=== PATIENT | male | born 1955 | race Hispanic/Latino ===

== ENCOUNTER 2024-07-12 01:15 | Emergency (ER) | payer MEDICARE, BC, SELFPAY ==
[2024-07-12] VITALS (7 sets, daily range): BP systolic 120–137; BP diastolic 80–90; BMI 33.9
--- NOTE | 2024-07-12 01:42 | ED.GENMED ---
History of Present Illness
<SHARA Pratt - Last Filed: 07/13/24 19:09>
General
Chief Complaint: Cold/Flu/URI Symptoms
Source: patient
Exam Limitations: none
Time Seen by Provider: 07/12/24 01:31
History of Present Illness
History of Present Illness:
This is a 69 year old male that comes in with c/o fever. States that he started on Sunday with shaking chills. States that they were so bad that he could hardly walk. States that thing have progressed and he has a fever with headache, nausea,
vomiting and diarrhea. States that he has upper abd pain. States that he recently had a CT of his abd as he had groin pain so he goes back to the cancer center and he was told that everything looked ok. Denies any chest pain, dizziness, urinary
burning.
Past History
<SHARA Pratt - Last Filed: 07/13/24 19:09>
Past History
ED Past Medical History: Cancer (Penile cancer) and Other (MRSA)
ED Past Surgical History: None, Orthopedic (carpal tunnel, Bilateral knees clean out due to Infection) and Other (Hernia, )
Social History
Tobacco: Non-smoker
Alcohol: Former
Drug: None
Personal:
Living: with family
Review of Systems
<SHARA Pratt - Last Filed: 07/13/24 19:09>
Review of Systems
All Other Systems: ROS reviewed and negative except as documented in HPI and ROS
Constitutional: Reports fever and chills
EENT: Reports no symptoms
Respiratory: Reports cough and trouble breathing
Cardiac: Denies chest pain
ABD/GI: Reports abdominal pain, nausea, vomiting and diarrhea
: Reports no symptoms; Denies dysuria, frequency or urgency
Musculoskeletal: Reports no symptoms
Skin: Reports no symptoms
Neurological: Reports headache; Denies dizzy
Psychiatric: Reports no symptoms
Phy Exam
<SHARA Pratt - Last Filed: 07/13/24 19:09>
General Physical Exam
General Presentation: mild distress
General age: appears stated age
General Skin: diaphoretic
General Habitus: elderly
General Mental: alert
General Hydration: appears well hydrated
ENT Exam
ENT Exam: TM's normal, pharynx normal and neck supple
Eye Exam
Eye Exam: EOMI and other (Slight sclera jaundice)
Cardiovascular Exam
Cardiovascular Exam: no edema, normal peripheral pulses, tachycardia and other (Murmur)
Pulmonary Exam
Pulmonary Exam: lungs clear, no respiratory distress, no rales, chest non tender, no crackles, no rhonchi, no wheezing and no cough
Gastrointestinal Exam
Gastrointestinal Exam: normal bowel sounds, soft, no organomegaly, no pulsatile mass, non distended and tender (epigastric and right upper abd pain with palpation)
Musculoskeletal Exam
Musculoskeletal Exam: full ROM and no edema
Skin Exam
Skin Exam: no rash, no petechia, cyanosis, diaphoresis and jaundice (slight )
Psychiatric Exam
Psychiatric Exam: normal mood/affect
Course
<SHARA Pratt - Last Filed: 07/13/24 19:09>
Orders/Labs/Results
Orders:
Orders
07/12/24 01:25
COVID-19 Antigen Urgent
Source: Nasal Swab
Influenza A+B Rapid Molecular Urgent
WADE Source: Nasal Swab
Specimen Description:
07/12/24 01:41
0.9% Sodium Chloride 1000 ml [Nss] 1,000 ml IV BOLUS
CR Chest - 2 Views Urgent
Comment:
Reason For Exam: fever
US Abdomen Complete/Upper Urgent
Comment:
Reason For Exam: Upper abd pain
07/12/24 01:46
Ondansetron Injectable [Zofran] 4 mg IV NOW STA
07/12/24 01:58
Complete Blood Count/With Diff Urgent
Comprehensive Metabolic Panel Urgent
Lipase Urgent
Prothrombin Time Urgent
Blood Parasites Urgent
WADE Source: B
Specimen Description:
Comment: ADD ON
07/12/24 02:32
Ibuprofen [Motrin] 600 mg PO NOW STA
07/12/24 03:10
Lactic Acid Urgent
07/12/24 03:36
CT Abd/pelvis W Iv Cont Urgent
Comment:
Reason For Exam: abd pain
07/12/24 03:38
Urinalysis Reflex To Culture Urgent
Date Specimen was Collected: 07/12/24
Time Specimen was Collected: 03:35
Urine Microscopic Reflex Cult Urgent
07/12/24 04:25
Add On- LAB Urgent
Tests Added?: thick and thin smears for blood parasite.
Abnormal Lab Results
07/12/24 07/12/24
01:58 03:38
WBC 13.6 H 10^3/uL
(4.8-10.8)
MPV 11.7 H fL
(7.4-10.4)
Abs Immat Gran (auto) 0.1 H 10^3/uL
(0-0.05)
Absolute Neuts (auto) 12.4 H 10^3/uL
(1.4-6.5)
Absolute Lymphs (auto) 0.3 L 10^3/uL
(1.2-3.4)
Absolute Monos (auto) 0.7 H 10^3/uL
(0.1-0.6)
Neutrophils % 91.3 H %
(42.2-75.2)
Lymphocytes % 2.2 L %
(20.5-51.1)
PT 15.6 H Sec
(11.4-14.6)
Sodium 132 L mmol/L
(135-145)
Chloride 95 L mmol/L
(98-107)
Carbon Dioxide 21 L mmol/L
(22-30)
Glucose 165 H mg/dl
(70-99)
Total Bilirubin 2.8 H mg/dl
(0.2-1.3)
Urine Bilirubin 1+ A
(Negative)
Urine Urobilinogen 4+ A
(Neg - 1+)
Leukocyte Esterase Rfl Trace A
(Negative)
Urine Bacteria (Reflex) Few A
(Negative)
Urine Albumin (Reflex) 1+ A
(Neg - Trace)
07/12/24 01:58
07/12/24 01:58
Leukocytosis. Sodium slightly low. chloride low. hyperglycemia. Total rosa elevation. COVID and Influenza negative. Lipase normal at 55
Vital Signs
Initial and Last Documented VS:
Initial Vital Signs
Temp Pulse Resp BP Pulse Ox
103.0 F H 121 40 134/90 97
07/12/24 01:18 07/12/24 01:18 07/12/24 01:18 07/12/24 01:18 07/12/24 01:18
Last Documented Vital Signs
Temp Pulse Resp BP Pulse Ox
98.2 F 104 17 120/88 97
07/12/24 03:26 07/12/24 05:45 07/12/24 05:45 07/12/24 05:30 07/12/24 05:30
Olamidelt;Chidi Merchant DO - Last Filed: 07/12/24 04:59>
Orders/Labs/Results
Orders:
Orders
07/12/24 01:25
COVID-19 Antigen Urgent
Source: Nasal Swab
Influenza A+B Rapid Molecular Urgent
WADE Source: Nasal Swab
Specimen Description:
07/12/24 01:41
0.9% Sodium Chloride 1000 ml [Nss] 1,000 ml IV BOLUS
CR Chest - 2 Views Urgent
Comment:
Reason For Exam: fever
US Abdomen Complete/Upper Urgent
Comment:
Reason For Exam: Upper abd pain
07/12/24 01:46
Ondansetron Injectable [Zofran] 4 mg IV NOW STA
07/12/24 01:58
Complete Blood Count/With Diff Urgent
Comprehensive Metabolic Panel Urgent
Lipase Urgent
Prothrombin Time Urgent
Blood Parasites Urgent
WADE Source: B
Specimen Description:
Comment: ADD ON
07/12/24 02:32
Ibuprofen [Motrin] 600 mg PO NOW STA
07/12/24 03:10
Lactic Acid Urgent
07/12/24 03:36
CT Abd/pelvis W Iv Cont Urgent
Comment:
Reason For Exam: abd pain
07/12/24 03:38
Urinalysis Reflex To Culture Urgent
Date Specimen was Collected: 07/12/24
Time Specimen was Collected: 03:35
Urine Microscopic Reflex Cult Urgent
07/12/24 04:25
Add On- LAB Urgent
Tests Added?: thick and thin smears for blood parasite.
Abnormal Lab Results
07/12/24 07/12/24
01:58 03:38
WBC 13.6 H 10^3/uL
(4.8-10.8)
MPV 11.7 H fL
(7.4-10.4)
Abs Immat Gran (auto) 0.1 H 10^3/uL
(0-0.05)
Absolute Neuts (auto) 12.4 H 10^3/uL
(1.4-6.5)
Absolute Lymphs (auto) 0.3 L 10^3/uL
(1.2-3.4)
Absolute Monos (auto) 0.7 H 10^3/uL
(0.1-0.6)
Neutrophils % 91.3 H %
(42.2-75.2)
Lymphocytes % 2.2 L %
(20.5-51.1)
PT 15.6 H Sec
(11.4-14.6)
Sodium 132 L mmol/L
(135-145)
Chloride 95 L mmol/L
(98-107)
Carbon Dioxide 21 L mmol/L
(22-30)
Glucose 165 H mg/dl
(70-99)
Total Bilirubin 2.8 H mg/dl
(0.2-1.3)
Urine Bilirubin 1+ A
(Negative)
Urine Urobilinogen 4+ A
(Neg - 1+)
Leukocyte Esterase Rfl Trace A
(Negative)
Urine Bacteria (Reflex) Few A
(Negative)
Urine Albumin (Reflex) 1+ A
(Neg - Trace)
07/12/24 01:58
07/12/24 01:58
Vital Signs
Initial and Last Documented VS:
Initial Vital Signs
Temp Pulse Resp BP Pulse Ox
103.0 F H 121 40 134/90 97
07/12/24 01:18 07/12/24 01:18 07/12/24 01:18 07/12/24 01:18 07/12/24 01:18
Last Documented Vital Signs
Temp Pulse Resp BP Pulse Ox
98.2 F 104 17 120/88 97
07/12/24 03:26 07/12/24 05:45 07/12/24 05:45 07/12/24 05:30 07/12/24 05:30
<SHARA Pratt - Last Filed: 07/13/24 19:09>
MDM/Problems Addressed
Differential Diagnosis Includes:
COVID, Gallbladder disease, Pancreatitis
MDM/Problems Addressed:
This is a 69 year old male that comes in with c/o fever and chills. States that this started on Sunday and has continued to progress. States that he started vomiting today with diarrhea, feels SOB, headache.
will check labs Ultrasound, give IV fluids, chest x-ray and urine
Dr. Merchant into see patient. Explained to patient that his blood work shows that is WBC are mildly elevated. He is negative for COVID and Influenza. US is negative for any acute process. Will get CT scan.
Chronic conditions affecting care:
NA
Acute Exacerbation and/or Progression of Chronic Illness:
NA
<SHARA Pratt - Last Filed: 07/13/24 19:09>
*Radiology
Radiology exam reviewed: preliminary read by ED provider (Chest- Negative for active disease. ), radiology read reviewed (US night hawk- Mild fatty liver withprobable fatty sparing adjacent to the doug hepatis. Cyst with thin septations inthe left
lobe of the liver measuring 5.8X3.8X4,3cm no definite solid lesion. Comparisons with any prior studies would be helpful. Otherwise the liver, gallbladder, and visualized ) and other (US cont-biliary system are unremarkable. No gallstones or
sonographic Gallegos's sign. Kidneys and spleen are unremarkable. remainder of the visualized upper abdomen is unremarkable. )
*Pulse Oximetry
Patient hypoxic: no
*Lieutenant General Interpretation
Rate: tachycardiac
Heart Rate: 115
Rhythm: sinus tachycardia
*Critical Care Note
Total Time (30-74mins, 75-104mins- exclusive of procedures): Not Applicable
ED Attending Note
<SHARA Pratt - Last Filed: 07/13/24 19:09>
-
Portions of this chart may have been created with voice recognition software.� Occasional wrong word or��sound alike� substitutions may have occurred due to the inherent limitations of voice recognition software.
<Chidi Merchant, DO - Last Filed: 07/12/24 04:59>
ED Attending Note
Patient seen and examined by attending physician: Yes
I performed the substantive portion of visit, reviewed & personally made and approve the management plan that is documented in note by myself or FILEMON.: Yes
ED Attending Note:
Patient presents for evaluation of fever, chills, headache. Symptoms been present for the past 4 days. Patient states he does go outside from time to time but has not frequently wooded areas. He cannot recall any bites. Patient has been
experiencing abdominal pain as well. Patient's subjectively in the upper abdomen.
General: Awake, Alert, Oriented X3. No acute distress.
Vitals: unremarkable
Head: Atraumatic
Eyes: Pupils equal, EOMI, muddy sclera versus mild scleral icterus
Throat: Airway intact, no exudates
Neck: Trachea midline
Lungs: Clear and equal b/l
Heart: Regular rate, no murmurs
Abd: Soft, somewhat tender upper abdomen, No pulsatile mass
Neuro: Nonfocal
Skin: Warm, dry, no rash
Extremities: pulses equal b/l, no edema
Ultrasound and CT did not show any source of infection. Urinalysis is negative for white blood cells and therefore very low urinary tract infection. White count is minimally elevated. Suspect viral illness or tickborne illness. No rash to
suggest Lyme. Blood smears for blood parasites added on. Patient is tolerating oral intake and is hemodynamically stable. No indication for hospitalization at this point but I have stressed to the patient to return if he is feeling worse or not
feeling better in the next 48 hours.
Discharge Plan
Departure
Patient Disposition: Home (Routine Discharge)
Date of Disposition: 07/12/24
Time of Disposition: 04:56
Patient with high blood pressure during this ER visit?: No
Condition: Good
Discharge Problem:
Fever, Acute viral syndrome
Instructions: Fever, Adult (DC), Viral Syndrome (DC)
Prescriptions:
No Action
polyethylene glycol 3350 17 GRAMS powder in packet
17 grams PO DAILYPRN PRN (Reason: constipation) Qty: 1 0RF
acetaminophen [Tylenol Extra Strength] 500 MG tablet
1,000 mg PO Q6HPRN PRN (Reason: mild pain) Qty: 1 0RF
ibuprofen 200 MG tablet
400 - 600 mg PO Q6HPRN PRN (Reason: moderate pain) Qty: 1 0RF
oxycodone 5 MG tablet
5 mg PO Q4HPRN PRN (Reason: breakthrough/severe pain) Qty: 10 0RF
Referrals:
PRIVATE,PHYSICIAN [Family Provider] -
Activity Restrictions/Additional Instructions:
Please return if you are not feeling better in the next 48 hours. I suspect your fever is due to a viral illness but we have added some test on to exclude tickborne illness as well. Follow-up with your primary care provider.
Interventions
Interventions:
*Risk Screen - Suicide Last Done: 07/12/24 02:05
*General Assessment Last Done: 07/12/24 02:05
*Neglect/Abuse Screening Last Done: 07/12/24 02:05
ED- Fall Risk Assessment Last Done: 07/12/24 02:05
*ED COVID-19 Vaccine History Last Done: 07/12/24 02:05
*Nursing Disposition Last Done: 07/12/24 05:49
ED- Pulmonary Assessment Last Done: 07/12/24 02:05
Discharge Date and Time
Discharge Date/Time: 07/12/24 05:57
Print Language: HONG KONGER
[2024-07-12 01:53] LABS: COVID-19 Antigen Negative (Negative)
[2024-07-12] MEDS: ZOFRAN 4 MG IV (01:57)
[2024-07-12] MEDS: NSS 1000 IV (01:57)
[2024-07-12 02:11] LABS: % Basophils 0.4 % (0-2); % Eosinophils 0.4 % (0-6); % Immature Granulocytes 0.5 % (0-0.5); % Lymphocytes 2.2 % (20.5-51.1); % Monocytes 5.2 % (1.7-9.3); % Neutrophils 91.3 % (42.2-75.2); Absolute Basophils 0.1 10^3/uL (0-0.2); Absolute Eosinophils 0.1 10^3/uL (0-0.7); Absolute Immature Granulocytes 0.1 10^3/uL (0-0.05); Absolute Lymphocytes 0.3 10^3/uL (1.2-3.4); Absolute Monocytes 0.7 10^3/uL (0.1-0.6); Absolute Neutrophils 12.4 10^3/uL (1.4-6.5); Hematocrit 39.8 % (39.0-52.0); Hemoglobin 14.6 g/dL (13.0-18.0); Mean Corp Hgb Conc. 36.7 g/dL (33.0-37.0); Mean Corpuscular Hgb 30.5 pg (27.0-31.0); Mean Corpuscular Volume 83.1 fL (80.0-94.0); Mean Platelet Volume 11.7 fL (7.4-10.4); Nucleated Red Blood Cells % 0 % (-); Platelet Count 146 10^3/uL (130-400); Red Blood Cell Count 4.79 10^6/uL (4.70-6.10); White Blood Cell Count 13.6 10^3/uL (4.8-10.8)
[2024-07-12 02:20] LABS: INR 1.26; PT 15.6 Sec (11.4-14.6)
[2024-07-12 02:22] LABS: ALT (SGPT) 31 U/L (0-50); AST (SGOT) 33 U/L (17-59); Albumin 3.9 g/dl (3.5-5.0); Alkaline Phosphatase 102 U/L (38-126); Blood Urea Nitrogen 15 mg/dl (9-20); Calcium 9.4 mg/dl (8.4-10.2); Carbon Dioxide 21 mmol/L (22-30); Chloride 95 mmol/L (98-107); Estimated Creatinine Clearance 83 ml/min; Glucose 165 mg/dl (70-99); Lipase 55 U/L (23-300); Potassium 3.7 mmol/L (3.5-5.1); Sodium 132 mmol/L (135-145); Total Bilirubin 2.8 mg/dl (0.2-1.3); Total Protein 7.1 g/dl (6.3-8.2); eGFR > 60.00
[2024-07-12] MEDS: MOTRIN 600 MG PO (03:06)
[2024-07-12 03:48] LABS: Urine Albumin 1+ (Neg - Trace); Urine Bilirubin 1+ (Negative); Urine Character Clear (Clear); Urine Color Amber; Urine Glucose Negative (Negative); Urine Ketone Negative (Negative); Urine Leukocyte Trace (Negative); Urine Nitrite Negative (Negative); Urine Occult Blood Negative (Negative); Urine Urobilinogen 4+ (Neg - 1+)
[2024-07-12 03:56] LABS: Urine Amorphous Seen; Urine Bacteria Few (Negative); Urine Red Blood Cell None Seen /HPF (0-2); Urine White Cell 0-2 /HPF (0-5)
== END 2024-07-12 05:57 | disposition home or self-care (01) ==
LOC: EMR 01:15
PROVIDERS: Clinical Nurse Specialist Family Health; Emergency Medicine; EMERGENCY PHYSICIAN Emergency Medicine
DX: B34.9 Viral infection, unspecified (principal); R50.9 Fever, unspecified; R06.02 Shortness of breath; R11.2 Nausea with vomiting, unspecified; R51.9 Headache, unspecified; R10.10 Upper abdominal pain, unspecified; R19.7 Diarrhea, unspecified; R05.9 Cough, unspecified; M54.9 Dorsalgia, unspecified; R26.2 Difficulty in walking, not elsewhere classified; K76.0 Fatty (change of) liver, not elsewhere classified; K76.89 Other specified diseases of liver; R73.9 Hyperglycemia, unspecified; Z85.89 Personal history of malignant neoplasm of other organs and systems; Z86.14 Personal history of Methicillin resistant Staphylococcus aureus infection
CPT/HCPCS: 99284; 96374; 96361; 71046; 74177; 76700; 80053; 81003; 81015; 83605; 83690; 85025; 85610; 87015; 87207; 87502; 87811; Q9967

== ENCOUNTER 2024-07-12 22:18 | Inpatient (IN) | payer MEDICARE, BC, SELFPAY ==
[2024-07-12] VITALS (8 sets, daily range): BP systolic 115–147; BP diastolic 79–126; BMI 33.7; BMI 32.8
--- NOTE | 2024-07-12 19:55 | ED.GENMED ---
History of Present Illness
General
Chief Complaint: Breathing Problem
Source: patient
Exam Limitations: none
Time Seen by Provider: 07/12/24 19:44
History of Present Illness
History of Present Illness:
69-year-old male seen here earlier today presents back for increased generalized weakness and shortness of breath. He was thought to have viral syndrome. He has been sick for 4 to 5 days. He is nauseous without vomiting. Today he noted sharp
pains on the left side of his chest with difficulty breathing. Notes ongoing abdominal pain. He had chest x-ray performed last evening as well as abdominal CT scan. Blood parasite smear was negative COVID and flu were negative. Today his son
notes that he was trying to sit up was too weak and was about to collapse because of generalized weakness.
Past History
Past History
ED Past Medical History: Cancer (Penile cancer) and Other (MRSA)
ED Past Surgical History: None, Orthopedic (carpal tunnel, Bilateral knees clean out due to Infection) and Other (Hernia, )
Social History
Tobacco: Non-smoker
Alcohol: Former
Drug: None
Personal:
Living: with family
Phy Exam
Physical Exam
Physical Exam:
General: Well-developed male with increased work of breathing
HEENT: Normocephalic atraumatic mucosa moist neck is supple posterior pharynx without erythema no trismus or drooling
Heart: Tachycardic but regular
Lungs: Breath sounds heard without obvious wheeze or rales
Abdomen is soft nontender
Extremities: No cyanosis or edema
Neurologic: Alert and oriented face is symmetric no unilateral deficit noted
Skin is warm no rash
Scores
Heart Failure Risk
Heart Failure Risk Score: Not Applicable
Course
Orders/Labs/Results
Orders:
Orders
07/12/24 18:56
EKG [Electrocardiogram (*1)] Urgent
Reason for Study: Shortness of Breath
EKG- Treatment ONCE
07/12/24 19:54
CT Chest Pe Study Urgent
Comment:
Reason For Exam: shortness of breath, chest pain
0.9% Sodium Chloride 1000 ml [Nss] 1,000 ml IV BOLUS
07/12/24 20:16
C-Reactive Protein Urgent
Comment: ADD ON
Complete Blood Count/With Diff Urgent
Comprehensive Metabolic Panel Urgent
Magnesium Urgent
NT-proBNP Urgent
Troponin I Urgent
07/12/24 20:18
CT Head W/o Iv Contrast Urgent
Comment:
Reason For Exam: weakness
07/12/24 21:17
Add On- LAB Urgent
Tests Added?: magnesium, crp
07/12/24 21:23
PTT Urgent
Comment: Obtain baseline before beginning heparin infusion if not already collected
Furosemide [Lasix] 40 mg IV NOW STA
Heparin 4,000 units IV NOW STA
Pharmacy Request to Place See Dose Instructions PO NOW STA
Discontinue all Active Warfarin orders?: Yes
Nursing to Place Non Medication Order As Directed
Physician Order: PTT 6 hours after initial start of Heparin infusion
07/12/24 21:30
Heparin 95091 Units/250 ml 25,000 units in 250 ml IV PER PROTOCOL
Weight to be used for heparin protocol in kilograms (kg):: 94.8
Protocol:: Cardiac Tx/Acute Coronary
PTT Goal Range to be used:: PTT 73 to 111 seconds
Order type:: Initial
INITIAL Infusion Dose (UNITS/KG/hr) & then follow protocol:: 12 units/kg/hr
Infusion Dose in UNITS/hr & then follow protocol (UNITS/hr):: 1,000
INFUSION RATE in mL/hr & then follow protocol (mL/hr):: 10
PTT less than or equal to 64 seconds:: Increase rate by 200 units/hr (+ 2 mL/hr)
PTT 64.1 to 72.9 seconds:: Increase rate by 100 units/hr (+ 1 mL/hr)
PTT 73 to 111 seconds:: Target Range. No change in rate.
PTT 111.1 to 130.9 seconds:: Decrease rate by 100 units/hr (- 1 mL/hr)
PTT 131 to 199.9 seconds:: HOLD for 1 hr. Then decrease rate by 200 units/hr (- 2 mL/hr)
PTT greater than or equal to 200 seconds:: HOLD for 2 hrs & Notify Provider. Then decrease by 200 units/hr (-
2 mL/hr)
Lab follow-up:: Each change, PTT q6h until 2 consecutive are therapeutic. Then PTT
daily.
07/12/24 22:[address] See Dose Instructions IV DIRECTED
Abnormal Lab Results
07/12/24
20:16
WBC 13.0 H 10^3/uL
(4.8-10.8)
RBC 4.21 L 10^6/uL
(4.70-6.10)
Hgb 12.8 L g/dL
(13.0-18.0)
Hct 35.1 L %
(39.0-52.0)
Plt Count 86 L D 10^3/uL
(130-400)
MPV 13.0 H fL
(7.4-10.4)
Abs Immat Gran (auto) 0.2 H 10^3/uL
(0-0.05)
Absolute Neuts (auto) 12.0 H 10^3/uL
(1.4-6.5)
Absolute Lymphs (auto) 0.3 L 10^3/uL
(1.2-3.4)
Immature Gran % 1.3 H %
(0-0.5)
Neutrophils % 92.6 H %
(42.2-75.2)
Lymphocytes % 2.3 L %
(20.5-51.1)
Sodium 134 L mmol/L
(135-145)
Carbon Dioxide 18 L mmol/L
(22-30)
BUN 27 H mg/dl
(9-20)
Glucose 154 H mg/dl
(70-99)
Total Bilirubin 2.2 H mg/dl
(0.2-1.3)
Troponin I 7.360 H* ng/ml
07/12/24 20:16
07/12/24 20:16
Vital Signs
Initial and Last Documented VS:
Initial Vital Signs
Pulse Ox
96
07/12/24 18:55
Last Documented Vital Signs
Temp Pulse Resp BP Pulse Ox
98.4 F 108 30 135/83 98
07/12/24 20:48 07/12/24 19:30 07/12/24 19:30 07/12/24 19:00 07/12/24 19:30
MDM/Problems Addressed
Differential Diagnosis Includes:
Shortness of breath and chest pain. This is an extension of an illness he is Hydrophor 5 days with recent workup here in emergency room within the past 24 hours including chest x-ray abdominal CT and labs. Workup was negative. However, patient is
tachycardic and. He noted sharp chest pains. Will order CTA of the chest PE study check labs again and hydrate. Patient does not appear volume overloaded at this time.
*Critical Care Note
Total Time (30-74mins, 75-104mins- exclusive of procedures): Not Applicable
Update Note
Update Note:
Workup here shows PE study that was negative for PE but demonstrates cardiomegaly. BNP is elevated at 10,300 and troponin is elevated at 7.36. Patient again denies any current chest pain. His main complaint is shortness of breath and fatigue.
Discussed findings with emergency room attending as well as cardiology, Dr. Linn. Will start patient on Lasix and heparin for CHF and possible ACS. Will admit to hospital.
ED Attending Note
-
Portions of this chart may have been created with voice recognition software.� Occasional wrong word or��sound alike� substitutions may have occurred due to the inherent limitations of voice recognition software.
Discharge Plan
Departure
Patient Disposition: Admit
Date of Disposition: 07/12/24
Time of Disposition: 21:34
Presentation/result/management discussed w/ accepting MD/DO: Hospitalist
Discharge Problem:
Shortness of breath, Elevated troponin
Prescriptions:
No Action
polyethylene glycol 3350 17 GRAMS powder in packet
17 grams PO DAILYPRN PRN (Reason: constipation) Qty: 1 0RF
acetaminophen [Tylenol Extra Strength] 500 MG tablet
1,000 mg PO Q6HPRN PRN (Reason: mild pain) Qty: 1 0RF
ibuprofen 200 MG tablet
400 - 600 mg PO Q6HPRN PRN (Reason: moderate pain) Qty: 1 0RF
oxycodone 5 MG tablet
5 mg PO Q4HPRN PRN (Reason: breakthrough/severe pain) Qty: 10 0RF
Referrals:
Gaby Yanez CRNP [Family Provider] -
Interventions
Interventions:
*Risk Screen - Suicide Last Done: 07/12/24 18:57
*General Assessment Last Done: 07/12/24 18:57
*Neglect/Abuse Screening Last Done: 07/12/24 18:57
ED- Fall Risk Assessment Last Done: 07/12/24 19:29
ED- Cardiac Assessment Last Done: 07/12/24 19:29
ED- Pulmonary Assessment Last Done: 07/12/24 19:29
Discharge Date and Time
Print Language: YORUBA
[2024-07-12] MEDS: NSS 1000 IV (20:18)
[2024-07-12 20:36] LABS: Hematocrit 35.1 % (39.0-52.0); Hemoglobin 12.8 g/dL (13.0-18.0); Mean Corp Hgb Conc. 36.5 g/dL (33.0-37.0); Mean Corpuscular Hgb 30.4 pg (27.0-31.0); Mean Corpuscular Volume 83.4 fL (80.0-94.0); Red Blood Cell Count 4.21 10^6/uL (4.70-6.10); Red Cell Dist. Width 12.3 % (11.5-14.5)
[2024-07-12 20:49] LABS: ALT (SGPT) 37 U/L (0-50); AST (SGOT) 55 U/L (17-59); Albumin 3.6 g/dl (3.5-5.0); Alkaline Phosphatase 100 U/L (38-126); Blood Urea Nitrogen 27 mg/dl (9-20); Calcium 9.7 mg/dl (8.4-10.2); Carbon Dioxide 18 mmol/L (22-30); Chloride 98 mmol/L (98-107); Estimated Creatinine Clearance 62 ml/min; Glucose 154 mg/dl (70-99); Sodium 134 mmol/L (135-145); Total Bilirubin 2.2 mg/dl (0.2-1.3); Total Protein 6.7 g/dl (6.3-8.2); eGFR > 60.00
[2024-07-12 20:52] LABS: % Basophils 0.3 % (0-2); % Eosinophils 0.3 % (0-6); % Immature Granulocytes 1.3 % (0-0.5); % Lymphocytes 2.3 % (20.5-51.1); % Monocytes 3.2 % (1.7-9.3); % Neutrophils 92.6 % (42.2-75.2); Absolute Immature Granulocytes 0.2 10^3/uL (0-0.05); Absolute Lymphocytes 0.3 10^3/uL (1.2-3.4); Absolute Monocytes 0.4 10^3/uL (0.1-0.6); Nucleated Red Blood Cells % 0 % (-); Platelet Count 86 10^3/uL (130-400)
[2024-07-12 21:00] LABS: NT-proBNP 10300 pg/ml
[2024-07-12 22:15] LABS: Lactic Acid 1.7 mmol/L (0.7-2.0)
[2024-07-12 22:17] LABS: C-Reactive Protein > 270.00 mg/L (0.0-10.00)
[2024-07-12] MEDS: LASIX 40 MG IV (22:18)
[2024-07-12] MEDS: HEPARIN 4000 UNITS IV (22:22)
--- NOTE | 2024-07-12 22:24 | HPS.HSE ---
Addendum entered and electronically signed by Adrian Benitez DO 07/12/24 23:37:
Patient seen and examined independently. Agree with findings and plan as set forth by Rody Reyes PA-C.
Patient is a 69y M with PMH significant for hypertension and penile cancer who presents to ED complaining of shortness of breath and weakness. Patient was seen in the ED earlier this AM with similar complaints and had a fever to 103 at that
time. Work-up including CT A/P at that time was unremarkable and patient was discharged with suspected viral syndrome. He returns to the ED this evening with significant shortness of breath and complaining of weakness. He is noted to be
tachycardic and appears dyspneic - though he is not hypoxemic.
Patient denies any chest pain. He notes mild cough, loose stools.
He does not spend much time [id number]. He works as an automotive glass specialist. He denies any recent travel or known sick contacts.
Ass:
Sepsis - Suspected Bacteremia
Type II AZ secondary to the above
Anion Gap Metabolic Acidosis
Anemia / Thrombocytopenia / Hyperbilirubinemia - ? hemolytic process
RUE Weakness - ? Facial Droop
Benign Hypertension
History of Penile Cancer s/p Partial Penectomy (2022) - No adjuvant treatments
Plan:
Admit to IMU for further evaluation and treatment.
Lactate normal despite fever, tachycardia, etc.
Elevated ProBNP and troponin - but no exam findings c/w significant volume overload.
Given dyspnea - IV Lasix dose given in the ED. Follow for clinical effect.
Volume status is not clear - follow I/Os, daily weights, dyspnea, etc.
Empiric IV abx with Vanco / Zosyn for now.
Suspicion for bacteremia +/- endocarditis with murmur noted on exam, poor dentition, ? new neurologic findings, etc.
Check Echo. Follow-up cultures.
ID evaluation for additional recommendations
Cardiology evaluation given Type II AZ, murmur, etc. Continue IV Heparin for now per Cardio recs. Follow troponin.
Follow cell counts for evidence of improvement with abx / treatment of sepsis.
Follow for neurologic changes. MRI brain for further evaluation (CT in the ED was unremarkable).
Prior history of smoking and + occupational exposures to toxic inhalations - IV steroids / nebs for ? degree of COPD exacerbation with decreased breath sounds / dyspnea.
Follow for clinical changes, new / focal symptoms, etc.
Original Note:
Family Physician
-
Family Physician: Gaby Yanez
Chief Complaint
-
Shortness of Breath
History of Present Illness
Patient is a 69 y/o male past medical history of hypertension, and penile cancer who presents with shortness of breath and weakness. Patient was seen here at the [facility] emergency department overnight for complaints of fever x 4 days.
He was discharged home with a diagnosis of viral syndrome. He returns today with worsening shortness of breath and profound weakness with generalized muscle pains. He reports diarrhea recently, and cough. History is limited as patient seems to be
having difficulty either understanding or expressing himself.
Medical History
Past Medical History
Past Medical History: Reports Other
Additional Past Medical History:
Essential Hypertension
Penile Cancer
Past Surgical History: Reports Other
Additional Past Surgical History:
Partial Penectomy with Lymph Node Dissection - May 2023
Bilateral Knee Surgery
Carpal Tunnel Surgery
Hernia Repair
Social History
Tobacco: Former Smoker (Quit about 10 years)
Alcohol: None
Drug: None
Employment: Employed ([employer] )
Family History
Family History: Not pertinent
Allergies / Home Medications
Allergies reflects when Allergies were last updated in [facility].
Home Medications with original date entered in [facility]
Allergy/Medication List:
Allergies
Allergy/AdvReac Type Severity Reaction Status Date / Time
NKA - No Known Allergies Allergy Unknown Uncoded 07/12/24 18:54
Home Medications
acetaminophen 500 mg tablet (Tylenol Extra Strength) 1,000 mg (2 x 500 mg) PO Q6HPRN PRN mild pain #1 tab 05/01/22
ibuprofen 200 mg tablet 400 - 600 mg (2 - 3 x 200 mg) PO Q6HPRN PRN moderate pain #1 tab 05/01/22
oxycodone 5 mg tablet 5 mg PO Q4HPRN PRN breakthrough/severe pain #10 tabs 05/01/22
polyethylene glycol 3350 17 gram oral powder packet 17 grams PO DAILYPRN PRN constipation #1 packet 05/01/22
Review of Systems
-
A 12 point ROS was completed and negative except as noted: Yes
Constitutional: Reports Fever
Respiratory: Reports Cough and Trouble Breathing
Cardiac: Denies Chest Pain
Abdomen/GI: Reports Diarrhea
Physical Exam
Vital Signs
Vital Signs
Temp Pulse Resp BP Pulse Ox
98.4 F 108 30 135/83 98
07/12/24 20:48 07/12/24 19:30 07/12/24 19:30 07/12/24 19:00 07/12/24 19:30
Physical Exam
General: Appears in Distress (Appears acute ill)
HEENT: Other (Poor Dentition; Sclera icteric)
Respiratory: Wheezes (Expiratory ) and Other (Tachypneic )
Cardiac: S1/S2, Regular Rhythm and Tachycardia
GI: Soft and Tender (Mild throughout)
Rectal: Deferred by Provider
Musculoskeletal: No Clubbing, No Cyanosis and No Edema
Skin: Warm and Dry
Neuro: Awake, Alert, Oriented, Facial Droop (Left Face) and Other (Right Upper Ext Weakness)
Psych: Calm
Laboratory Results
-
07/12/24 20:16
07/12/24 20:16
Laboratory Results
PT Cancelled 07/12/24 21:44
INR Cancelled 07/12/24 21:44
APTT Cancelled 07/12/24 21:44
Lactic Acid 1.7 mmol/L (0.7-2.0) 07/12/24 21:50
Total Bilirubin 2.2 mg/dl (0.2-1.3) H 07/12/24 20:16
AST 55 U/L (17-59) 07/12/24 20:16
ALT 37 U/L (0-50) 07/12/24 20:16
Alkaline Phosphatase 100 U/L (38-126) 07/12/24 20:16
Troponin I 7.360 ng/ml H* 07/12/24 20:16
Data Reviewed
-
CT Scan: Report Reviewed by me
Lab Data: Labs Reviewed by me
Impression/Plan
-
Severe Sepsis, unclear etiology
-Obtain blood cultures
-Start empiric antibiotics with vancomycin and zosyn
Type II AZ
-Consult Cardiology
-Continue heparin drip
-Start low dose aspirin
-Check Echo
Shortness of breath, possible bronchitis vs acute COPD exacerbation
-Start Decadron and Duoneb
-Give dose of Lasix and monitor for response
Right Upper Extremity Weakness and Left Facial Droop
-Monitor neuro-checks
-Check Brain MRI
Anemia, high clinical concern for hemolysis
-Check LDL and Haptoglobin
-Monitor Hgb closely while on heparin drip
Thrombocytopenia
-Monitor for bleeding
-Monitor platelets count
Essential Hypertension
-Monitor blood pressure
Hx Penile Cancer s/p Partial Penectomy
Code Status: Full Code
[2024-07-12 22:25] LABS: LDH 309 U/L (120-246)
[2024-07-12] MEDS: HEPARIN 25000 UNITS/250 ML IV (22:25)
[2024-07-12] MEDS: DECADRON 10 MG IV (22:43)
[2024-07-12] MEDS: DUONEB 3 ML INH (22:45)
[2024-07-12] MEDS: TYLENOL 650 MG PO (23:00)
[2024-07-12 23:10] LABS: Fibrinogen 512 MG/DL (199-459); INR 1.39; PT 16.8 Sec (11.4-14.6)
[2024-07-12 23:11] LABS: APTT 41.9 Sec (23.4-35.0)
[2024-07-12 23:11] LABS: TSH Reflex To Free T4 0.74 uIU/ml (0.47-4.68)
[2024-07-12 23:20] LABS: D-Dimer 9.73 ug/mlFEU (0.00-0.50)
--- NOTE | 2024-07-12 23:38 | PHA.VAN.IN ---
Assessment
- Assessment
Renal Function: Appears similar to baseline
Maximum Temperature: 101.5
Concomitant Antimicrobials: piperacillin-tazobactam
AUC Dosing Plan
- Dosing Variables
Dosing Weight (kg): 92.1
Dosing CrCl (ml/min): 62
Vd coefficient (L/kg): 0.6
- Empiric Dosing
Initial / Loading Dose: 1000mg
Maintenance Regimen: vanc 750 mg q12h
Estimated AUC (mcg*h/mL): 492
Estimated Peak (mcg*h/mL): 27
Estimated Trough (mcg/ml): 15
Estimated Half Life (H): 12.4
patient is in between q12 h and q24h - started q12h for now, but may need to be adjsuted to q24h
- Monitoring
No levels ordered at this time: consider in the next few days
Pharmacokinetics Vancomycin I
- -
Patient Age: 69
Patient Sex: Male
Vancomycin Day #: 1
Indication: Other
Requesting Provider: NICOLE Augustine
Pertinent Antimicrobial Allergies:
no known allergies
Height / Weight:
Height 5 ft 6 in
Actual Weight 92.1 kg
- Vital Signs / Lab Results
Temp Pulse Resp BP Pulse Ox
101.5 F H 123 35 115/82 92
07/12/24 22:50 07/12/24 23:30 07/12/24 23:30 07/12/24 23:22 07/12/24 23:30
Lab Results - Hematology
07/12/24
20:16
WBC 13.0 H
Lab Results - Chemistry
07/12/24
20:16
BUN 27 H
Creatinine 1.2
Estimated Creat Clear 62
Albumin 3.6
07/12/24
21:50
Lactic Acid 1.7
[2024-07-12] MEDS: ZOSYN 50 IV (23:47)
[2024-07-13] VITALS (15 sets, daily range): BP systolic 59–157; BP diastolic 47–122; BMI 32.8
--- NOTE | 2024-07-13 | PTCARENOTE ---
Pt. admitted to IMU with diagnosis of sepsis/FL. Pt. awake, alert, and oriented. Denies pain/discomfort. Given Tylenol in ED for fever, currently afebrile. Heart rhythm is sinus tachycardia. Blood pressure normotensive. Currently on heparin gtt for
FL diagnosis. Pt. on nasal cannula. Lungs sound diminished. Pt. is NPO. Incontinent of urine. Skin as documented. Discussed plan of care with patient. Vital signs stable at this time.
[2024-07-13] MEDS: VANCOCIN 200 IV (00:04)
[2024-07-13] MEDS: NITROGLYCERIN PREMIX 250 IV (02:49)
[2024-07-13] MEDS: MORPHINE SULFATE 1 MG IV ×2 (02:52→03:18)
[2024-07-13 02:56] LABS: Glucose - Point of Care 171 mg/dl (70-99)
[2024-07-13] MEDS: XOPENEX 0.63 MG INHALANT SOLUTION INH (02:57)
[2024-07-13 03:11] LABS: Hemoglobin 17.5 g/dL (13.0-18.0); Mean Corp Hgb Conc. 35.7 g/dL (33.0-37.0); Mean Corpuscular Hgb 30.3 pg (27.0-31.0); Mean Corpuscular Volume 84.9 fL (80.0-94.0); Platelet Count 67 10^3/uL (130-400); Red Blood Cell Count 5.77 10^6/uL (4.70-6.10); Red Cell Dist. Width 12.5 % (11.5-14.5); White Blood Cell Count 24.2 10^3/uL (4.8-10.8)
[2024-07-13 03:16] LABS: Lactic Acid 3.4 mmol/L (0.7-2.0)
[2024-07-13 03:20] LABS: B.E. -7.1 mmol/L; O2 Saturation % 98.9 % (94-98); PCO2 35 mmHg (35-48); PO2 98 mmHg (83-108); pH 7.32 (7.35-7.45)
[2024-07-13 03:40] LABS: ALT (SGPT) 45 U/L (0-50); AST (SGOT) 70 U/L (17-59); Albumin 4.2 g/dl (3.5-5.0); Alkaline Phosphatase 141 U/L (38-126); Blood Urea Nitrogen 31 mg/dl (9-20); Calcium 10.2 mg/dl (8.4-10.2); Carbon Dioxide 17 mmol/L (22-30); Chloride 98 mmol/L (98-107); Estimated Creatinine Clearance 49 ml/min; Glucose 184 mg/dl (70-99); Magnesium 2.3 mg/dl (1.6-2.3); Sodium 141 mmol/L (135-145); Total Bilirubin 2.3 mg/dl (0.2-1.3); Total Protein 7.9 g/dl (6.3-8.2); eGFR 49.77
--- NOTE | 2024-07-13 03:49 | W.PN.UPDATE ---
Update Note
Progress Note Update
PIT OPERATOR
Patient complaining of LT upper chest discomfort/pain associated with SOB. Patient is diaphoretic. BP 138/75, hr 120-130s, SPO2 94 % on non rebreather mask/ 15 L, BS 171.
-Ekg, CBC, BMP, mag, lactic acid, Troponin, abg ordered
-IV morphine given with no relieve. Patient started on Nitro drip.
-Cardiology employee relations advisor updated via phone/ T text and Reviewed recent EKGs
-Reviewed the case with Dr Benitez at bedside and will transfer the patient to ICU.
- contacted and updated with the current medical situation and current plan with the possibility of intubation/ventilator.
[2024-07-13] MEDS: ATIVAN 1 MG IV (03:53)
[2024-07-13] MEDS: LEVOPHED 250 IV ×2 (04:00→06:07)
--- NOTE | 2024-07-13 04:00 | W.PN.SEPSIS ---
Sepsis
Vital Signs
Temp Pulse Resp BP Pulse Ox
99 F 149 48 82/73 60
07/13/24 00:00 07/13/24 04:00 07/13/24 04:00 07/13/24 04:00 07/13/24 04:00
Physical Exam
Physical Exam:
A focused exam was performed after fluid resuscitation.
Capillary Refill
Bilateral Upper Extremity:
Ly Time: Less than 3 sec
Bilateral Lower Extremity:
Ly Time: Less than 3 sec
Pulse Evaluation
Bilateral Radial:
Pulse Evaluation: Present
Bilateral Dorsalis Pedis:
Pulse Evaluation: Present
[2024-07-13] MEDS: PRECEDEX 100 IV (04:05)
[2024-07-13] MEDS: LASIX 40 MG IV (04:14)
[2024-07-13] MEDS: SODIUM BICARBONATE 50 MEQ IV (04:14)
--- NOTE | 2024-07-13 04:20 | PTCARENOTE ---
Pt. with complaints of chest discomfort in IMU. Diaphoretic. House provider called to bedside. Multiple EKG taken. Nitro gtt started. Rapid response called. Pt. with increased work og breathing. ABG drawn. Upgraded to ICU. Pt. becoming lethargic.
Increased work of breathing continues. Anesthesia called for intubation.
--- NOTE | 2024-07-13 04:25 | W.PN.UPDATE ---
Update Note
Progress Note Update
Operation/Procedure: left radial arterial line placement
Consent for operation or procedure: Emergent need due to patient condition - need for invasive monitoring per protocol
Indications: Hemodynamic monitoring
After properly positioning the patient's wrist in the standard fashion, the site was prepped and draped in a sterile fashion. The radial artery was entered, noting bright red, pulsatile flow. A guidewire was easily inserted, the needle removed, and
the catheter was then placed using the Seldinger technique. The guidewire was removed, with good flow present. The catheter was then connected to the transducer with a good waveform noted. The catheter was secured with an occlusive dressing was
placed after properly cleaning and prepping the site.
Complications: The patient tolerated the procedure well and no complications were noted.
Estimated Blood Loss: minimal
Plan: Arterial line to remain in place for hemodynamic monitoring.
[2024-07-13] MEDS: SUBLIMAZE 100 MCG IV (04:30)
[2024-07-13] MEDS: VERSED 2 MG IV (04:30)
[2024-07-13] MEDS: NSS 500 IV (04:50)
--- NOTE | 2024-07-13 05:15 | W.PN.ANESINT ---
Anesthesia Intubation Note
- Intubation Note
Intubation Note:
Respiratory Distress, Hypercapnia
Diagnosis:
Blade: Glidescope 4
Tube Size: 8.0
Depth: 23 cm @ lips
Side Taped: Right
Drugs Used: Midazolam 2mg IV, Succinylcholine 120 mg
Grade View: 1
EtCO2 Present: Yes
Atraumatic: Yes
Attempts: 1
Insertion Start and Stop Time: 425, 426
SaO2 Pre: 98
SaO2 Post: 98
Glidescope Used: Yes
Other Airway Adjustments: None
Pre-Oxygenated: Yes
Portable Chest X-Ray: Pending
RSI: Yes
Suctioned: No
Bilateral Breath Sounds Confirmed: Yes
Vent Settings:
Settings per _ICU__Attending Physician
[2024-07-13] MEDS: PITRESSIN 100 IV (05:30)
[2024-07-13] MEDS: NEO-SYNEPHRINE 250 IV (05:30)
[2024-07-13] MEDS: ADRENALIN 250 IV (05:30)
--- NOTE | 2024-07-13 06:06 | RESPNOTE ---
when code 9 was called, pt was ventilated with 100% O2via ambu bag and a peep valve added with a peep of 5 CmH20, until heart rate was detected. Pt then placed back on vent. Same settings prior to code
--- NOTE | 2024-07-13 06:30 | PTCARENOTE ---
Code 9 called at 04:50am. SHARA Cheng and Dr. Benitez in room when code was called. Compressions started. IO line placed in R leg during code. Pt. maxed on levophed gtt, neosynephrine gtt, vasopressin gtt, and epinephrine gtt. Multiple pushes of
epinephrine and pushes of bicarb given as well as other code meds. See code sheet. Pt. achieved ROSC approximately 05:50 am. Patient's family agreed to switch patients code status to limited DNR - no CPR. Vasopressor drips to remain on for time
being. Family (spouse and son) currently at bedside. Dr. Benitez spoke with family about patient's condition and discussed goals of care. Pt. currently has a pulse. Blood pressure 40s/30s.
--- NOTE | 2024-07-13 06:47 | W.PN.UPDATE ---
Update Note
Progress Note Update
07/13/24
0330- Patient transferred from IMU to ICU for worsening respiratory status, tachypnea, labored breathing use of accessory muscles, diaphoretic, chest pain, and restlessness. Initially he was started on nitroglycerin gtt and given morphine for chest
pain, some relief with morphine IV for chest pain. Patient transported on non rebreather. Dr. Benitez at bedside to evaluate patient and continuing worsening clinical status.
0345- Chest xray obtained- New bilateral infiltrates R>L, differential included pneumonia vs acute pulmonary edema. Lasix 40mg IV given. Ativan 1mg IV given for anxiety and shortness of breath. Breath sounds coarse, Right side rhonchi with pleural
friction rub. Nitroglycerin gtt stopped due to hypotension. Patient transported on non rebreather but was feeling claustrophobic with the mask over his face, he was transitioned to high flow nasal cannula. Precedex gtt started for anxiety and
restlessness. Labs reviewed anion gap acidosis. Bicarb IV push given 1 amp.
0418- Anesthesia Ida Ontiveros BOTTLE FILLER called for STAT intubation for patient. Arterial line placed emergently for closer hemodynamic monitoring. Patient was intubated without event.
0450- Code 9 called, see code sheet for full details. Initial rhythm was vtach, shock delivered, epi and CPR started, rhythm was then PEA. Multiple rounds of epinephrine, bicarb, and calcium given. Pulse regained for <5 minutes and then pulse was
lost again at 0528, see second code [address] Benitez present during code and recommendations received. Patient on max vasopressors with weak pulse: levophed, dayna, vasopressin, and epi gtts.
Family called updated on patient's critical condition and traveled to hospital bedside. Dr. Benitez updated family with overall poor prognosis and collective down time with code of over 50 minutes. Code was stopped and patient had pulse, vasopressors
were continued and family requested additional family members come to bedside but agreed to no CPR if his heart were to stop again.
8830 Withdrawal of care conversation had with family by Dr. Benitez. Family agreed to stop vasopressors and all heroic measures. PRN morphine placed for comfort care.
Patient pronounced at 0748.
[2024-07-13] MEDS: ZOSYN IV (07:32)
--- NOTE | 2024-07-13 08:04 | W.PN.UPDATE ---
Update Note
Progress Note Update
Patient deteriorated throughout the night.
Developed significant increase in work of breathing and dyspnea. Was diaphoretic and in respiratory distress.
CXR showed R pneumonia and evidence of pulmonary edema.
He was transferred to the ICU and continued to deteriorate requiring intubation and sedation.
Patient suffered cardiac arrest at 4:50 AM. Code was called and CPR, ACLS protocols were carried out.
Despite extensive resuscitation efforts lasting nearly an hour, patient failed to have meaningful return of perfusion / circulation. He did however have a weak, persistent pulse.
Discussion held with the family throughout this process (mother and son).
They agreed to no additional CPR / resuscitation efforts. Additional family members were called to the patient's bedside.
Multiple vasoactive agents were discontinued after discussion with the family as patient remained hypotensive and was clearly not perfusing despite these interventions.
At 7:48 AM patient was noted to be pulseless.
He had no heart sounds or spontaneous respirations. No pulse or blood pressure was detected.
Patient was pronounced at 7:48 AM. Family was present at the bedside. Nursing notified Kid[facility].
--- NOTE | 2024-07-13 08:04 | W.DCSUMMARY ---
Discharge Summary
Discharge Data
Date of Admission: 07/12/24
Date of Discharge: 07/13/24
-
Pending Results: Yes
Hospital Course
Patient is a 69y M with PMH significant for hypertension and penile cancer who presents to ED complaining of shortness of breath and weakness. He was admitted for sepsis and acute myocardial infarction. Patient was treated with broad spectrum
antibiotics, IV heparin, Lasix. Despite medical care the patient condition deteriorated. He required intubation due to increased dyspnea. He then suffered cardiac arrest at 4:50 AM.
Following extensive CPR and ACLS protocols, patient had a pulse but no meaningful blood pressure or perfusion - despite maximal vasoactive agents and aggressive interventions.
After discussion with family it was decided that additional resuscitation efforts would not be pursued.
Patient was pronounced at 7:48 AM on 13 July 2024.
Discharge Plan
-
Patient Disposition:
Referrals:
Gaby Yanez CRNP [Family Provider] -
Prescriptions:
No Action
polyethylene glycol 3350 17 GRAMS powder in packet
17 grams PO DAILYPRN PRN (Reason: constipation) Qty: 1 0RF
acetaminophen [Tylenol Extra Strength] 500 MG tablet
1,000 mg PO Q6HPRN PRN (Reason: mild pain) Qty: 1 0RF
ibuprofen 200 MG tablet
400 - 600 mg PO Q6HPRN PRN (Reason: moderate pain) Qty: 1 0RF
oxycodone 5 MG tablet
5 mg PO Q4HPRN PRN (Reason: breakthrough/severe pain) Qty: 10 0RF
Discharge Date and Time
Print Language: GREEK
--- NOTE | 2024-07-13 08:18 | PTCARENOTE ---
Received pt this am intubated, on 4 pressors as charted, agonally breathing on vent. Dr Benitez up to see pt and spoke to family. I was told to stop heparin, epi, vasopressin and reduce levo and dayna to usual max doses which was done at 0715. Dr Benitez
remained on unit and pronounced pt as charted. Family at bedside. Family friend assisted with postmortem care at his request. Emotional support provided to family, rasper machine operator at bedside to pray/comfort family and friends. ALEXX called and made aware
of time of
--- NOTE | 2024-07-13 16:05 | CHAP ---
Paged for Jason's family at 8am. Comforted and prayed with the family at bedside. Emotional and spiritual support provided, along with a prayer blanket. Discussed next steps with the family, assuring them of painter airbrush availability should they have
further need.
[2024-07-14 21:45] LABS: Haptoglobin 217 mg/dL (30-200)
== END 2024-07-13 07:48 | disposition expired | DRG 871 ==
LOC: ICU 22:18
PROVIDERS: Nurse Practitioner Family; Physician Assistant; Physician Assistant Medical; ADMITTING PHYSICIAN Hospitalist; ATTENDING PHYSICIAN Internal Medicine; EMERGENCY PHYSICIAN Emergency Medicine; FAMILY PHYSICIAN Nurse Practitioner Adult Health
PROC: 5A1935Z Respiratory Ventilation, Less than 24 Consecutive Hours (ICD-10-PCS; 2024-07-12)
PROC: 0BH17EZ Insertion of Endotracheal Airway into Trachea, Via Natural or Artificial Opening (ICD-10-PCS; 2024-07-12)
DX: A41.9 Sepsis, unspecified organism (principal); I21.A1 Myocardial infarction type 2; E87.20 Acidosis, unspecified; J44.1 Chronic obstructive pulmonary disease with (acute) exacerbation; I46.9 Cardiac arrest, cause unspecified; I10 Essential (primary) hypertension; D69.6 Thrombocytopenia, unspecified; Z85.49 Personal history of malignant neoplasm of other male genital organs; Z87.891 Personal history of nicotine dependence
CPT/HCPCS: 36600; 70450; 71045; 71046; 71275; 74177; 76700; 80053; 81003; 81015; 82805; 82962; 83010; 83605; 83615; 83690; 83735; 83880; 84443; 84484; 85025; 85027; 85379; 85384; 85610; 85730; 86140; 86850; 86900; 86901; 87015; 87040; 87077; 87147; 87205; 87207; 87502; 87811; 93005; 94002; 94640; 96360; 99285; Q9967